=== PATIENT | male | born 1965 | race Caucasian/White ===

== ENCOUNTER 2016-08-19 17:24 | Emergency (ER) | payer BC ==
[~2016-08-19] VITALS: Wt 59.0 kg
[~2016-08-19 17:24] MED LIST: ASPIR LOW81 MG PO; CIALIS5 MG PO; LIPITOR10 MG PO; THERA-M CAPLET1 EACH PO; ZOFRAN ODT4 MG SL
[2016-08-19] MEDS ORDERED: BACTRIM DS 8001 TA1 PO (17:55)
== END 2016-08-19 18:00 | disposition home or self-care (01) ==
LOC: ED 17:24
DX: J01.10 Acute frontal sinusitis, unspecified (principal); F17.200 Nicotine dependence, unspecified, uncomplicated; Z90.49 Acquired absence of other specified parts of digestive tract; Z79.82 Long term (current) use of aspirin; Z88.0 Allergy status to penicillin